=== PATIENT | male | born 1985 | race Caucasian/White ===

== ENCOUNTER 2020-08-12 16:27 | Emergency (ER) | payer OTHER ==
[~2020-08-12] VITALS: Ht 182.9 cm; Wt 86.2 kg
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
[2020-08-12] MEDS ORDERED: BUPRENORPHINE HC8 MG SL (19:26)
== END 2020-08-12 18:25 | disposition home or self-care (01) ==
LOC: ED 16:27
DX: M54.2 Cervicalgia (principal); M54.5 Low back pain; V89.2XXA Person injured in unspecified motor-vehicle accident, traffic, initial encounter

== ENCOUNTER 2020-08-13 15:14 | Emergency (ER) | payer OTHER ==
[~2020-08-13] VITALS: Ht 182.9 cm; Wt 87.6 kg
[~2020-08-13 15:14] MED LIST: BUPRENORPHINE HC8 MG SL
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
== END 2020-08-13 17:54 | disposition home or self-care (01) ==
LOC: ED 15:14
DX: S46.912A Strain of unspecified muscle, fascia and tendon at shoulder and upper arm level, left arm, initial encounter (principal); S66.911A Strain of unspecified muscle, fascia and tendon at wrist and hand level, right hand, initial encounter; M54.42 Lumbago with sciatica, left side; F17.200 Nicotine dependence, unspecified, uncomplicated; V49.49XA Driver injured in collision with other motor vehicles in traffic accident, initial encounter
CPT/HCPCS: 99283

== ENCOUNTER 2024-03-02 09:55 | Emergency (ER) | payer OTHER ==
[~2024-03-02] VITALS: Ht 182.9 cm; Wt 80.0 kg
[~2024-03-02 09:55] MED LIST changes: +AMOX TR-K CLV1 EAC1 PO
[2024-03-02] MEDS ORDERED: ondansetron HCL 4 MG/2 ML VIAL IV ONE (10:15)
[2024-03-02] MEDS ORDERED: SODIUM CHLORIDE 0.9% 1,000 ML IV PRN ×2 (10:15→11:15)
[2024-03-02] MEDS ORDERED: LOPERAMIDE HCL 2 MG CAP PO ONE (10:15)
[2024-03-02 10:32] LABS: BASOPHILS 0.1 % (0-2); EOSINOPHILS 0.3 % (0-6); HEMATOCRIT 46.9 % (35.0-50.0); HEMOGLOBIN 16.8 g/dL (12.0-18.0); LYMPHOCYTES 11.2 % (24-44); MCH 30.4 (27-36); MCHC 35.7 g/dl (30-36); MCV 85.2 fl (81-99); MONOCYTES 19.7 % (0-12); NEUTROPHILS 68.7 % (39-80); PLATELET COUNT 236 K/uL (140-440); RBC 5.51 M/ul (4.3-5.7)
[2024-03-02 10:48] LABS: ALBUMIN 3.9 g/dL (3.4-5.0); ALBUMIN/GLOBULIN RATIO 1.11 (1.1-2.4); ANION GAP 15.1 (7-21); BILIRUBIN, TOTAL 1.3 ng/dL (0.2-1.0); BUN/CREATININE RATIO 19.81 (6.0-28.6); CREATININE, SERUM 1.06 mg/dL (0.70-1.30); MAGNESIUM 2.1 mg/dL (1.8-2.4); POTASSIUM 4.1 mmol/L (3.5-5.1); PROTEIN, TOTAL 7.4 g/dL (6.4-8.2)
[2024-03-02] MEDS ORDERED: ondansetron HCL 4 MG TAB PO ONE (12:30)
[2024-03-02] MEDS ORDERED: ONDANSETRON ODT4 MG PO (12:51)
[2024-03-02 12:55] VITALS: BP 127/97
== END 2024-03-02 12:55 | disposition home or self-care (01) ==
LOC: ED 09:55
PROVIDERS: Emergency Medicine
DX: K52.9 Noninfective gastroenteritis and colitis, unspecified (principal); F17.200 Nicotine dependence, unspecified, uncomplicated
CPT/HCPCS: 36415; 80053; 83690; 83735; 85025; 96361; 96374; 99284-25; A9270; J2405; J7030